=== PATIENT | male | born 1985 | race Caucasian/White ===

== ENCOUNTER 2018-03-02 16:13 | Emergency (ER) | payer MEDICAID ==
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
[2018-03-02] MEDS ORDERED: NS 1,000 ML IV ONE (16:29)
[2018-03-02 16:42] LABS: PLATELET COUNT 218 10^3/uL (150-400)
[2018-03-02 19:22] VITALS: BP 129/86
== END 2018-03-02 19:23 | disposition home or self-care (01) ==
LOC: EDUNIT#
DX: S09.90XA Unspecified injury of head, initial encounter (principal); E86.9 Volume depletion, unspecified; Y04.0XXA Assault by unarmed brawl or fight, initial encounter; F15.10 Other stimulant abuse, uncomplicated
CPT/HCPCS: 80305; G0480